=== PATIENT | male | born 1935 | race Caucasian/White ===

== ENCOUNTER → 2016-02-12 | Outpatient (REF) | payer MEDICARE ==
[~2016-02-12] MED LIST: /GLYB5TA; /PANT40TA; ACET65TA; ALDA25TA2 PO; AMLO5TAB2 PO; ASPI81TA83; ATEN100T; ATEN100T PO; BENA40TA2; BENA40TA2 PO; CIPR500T89 PO; CLON-412 PO; CLON1TAB; CLON1TAB PO; FERR325T; FLON1SPR; GLIP10TA6 PO; GLUCOVANCE; HYDR25TA6; IMOD2TAB16 PO; JANU100T PO; LACT20EL FT; LACT20EL PO; LASI20TA PO; LASI40TA PO; META28.35 PO; MILKSUS; MIRT45TA PO; PANT40TA2 PO; POTA1TAB14 PO; SENN1TAB2 PO; SPIR25TA2 PO; SPIR50TA2 PO; TYLE325T5 PO; VIAG100T PO; VITA10002 PO; XIFA550T PO; imodium; metamucil
[2016-02-12 12:55] LABS: MEAN CORPUSCULAR HEMOGLOBIN 27.7 pg (27.0-33.0); MEAN CORPUSCULAR HGB CONC 31.6 g/dl (32.0-36.5); MEAN CORPUSCULAR VOLUME 87.7 fl (80.0-96.0); RED CELL DISTRIBUTION WIDTH 15.7 % (11.5-14.5); WHITE BLOOD COUNT 2.6 K/mm3 (4.0-10.0)
[2016-02-12 13:20] LABS: ALBUMIN 2.5 GM/DL (3.2-5.2); ALBUMIN/GLOBULIN RATIO 0.53 (1.00-1.93); BILIRUBIN,TOTAL 0.6 MG/DL (0.2-1.0); CALCIUM LEVEL 8.9 MG/DL (8.8-10.2); CREATININE FOR GFR 1.33 MG/DL (0.70-1.30); GLOMERULAR FILTRATION RATE 55.2 (>42); POTASSIUM SERUM 4.5 MEQ/L (3.5-5.1); TOTAL PROTEIN 7.2 GM/DL (6.4-8.2)
== END ==
LOC: M SFHCPLAZ 08:17
PROVIDERS: ATTEND Internal Medicine
DX: K72.90 Hepatic failure, unspecified without coma (principal); D69.6 Thrombocytopenia, unspecified; E11.9 Type 2 diabetes mellitus without complications
CPT/HCPCS: 36415; 80053; 82140; 83036; 85027; G0463

== ENCOUNTER → 2016-03-11 | Outpatient (REF) | payer MEDICARE ==
[2016-03-11 11:16] LABS: INR 1.15
[2016-03-11 11:20] LABS: ALBUMIN 2.6 GM/DL (3.2-5.2); ALBUMIN/GLOBULIN RATIO 0.51 (1.00-1.93); BILIRUBIN,TOTAL 0.8 MG/DL (0.2-1.0); CALCIUM LEVEL 9.1 MG/DL (8.8-10.2); CREATININE FOR GFR 1.49 MG/DL (0.70-1.30); GLOMERULAR FILTRATION RATE 48.4 (>42); POTASSIUM SERUM 4.4 MEQ/L (3.5-5.1); TOTAL PROTEIN 7.7 GM/DL (6.4-8.2)
[2016-03-11 11:28] LABS: MEAN CORPUSCULAR HEMOGLOBIN 27.3 pg (27.0-33.0); MEAN CORPUSCULAR HGB CONC 31.2 g/dl (32.0-36.5); MEAN CORPUSCULAR VOLUME 87.4 fl (80.0-96.0); RED CELL DISTRIBUTION WIDTH 16.1 % (11.5-14.5); WHITE BLOOD COUNT 2.8 K/mm3 (4.0-10.0)
== END ==
LOC: M SFHCPLAZ 08:31
PROVIDERS: ATTEND Internal Medicine
DX: K72.90 Hepatic failure, unspecified without coma (principal); D69.6 Thrombocytopenia, unspecified; I10 Essential (primary) hypertension; K76.6 Portal hypertension
CPT/HCPCS: 36415; 80053; 82140; 85027; 85610; G0463

== ENCOUNTER → 2016-04-13 | Outpatient (REF) | payer MEDICARE ==
[2016-04-13 12:14] LABS: INR 1.11
[2016-04-13 12:17] LABS: MEAN CORPUSCULAR HEMOGLOBIN 28.8 pg (27.0-33.0); MEAN CORPUSCULAR VOLUME 87.2 fl (80.0-96.0); RED CELL DISTRIBUTION WIDTH 16.4 % (11.5-14.5); WHITE BLOOD COUNT 2.8 K/mm3 (4.0-10.0)
[2016-04-13 14:17] LABS: CREATININE FOR GFR 1.37 MG/DL (0.70-1.30); GLOMERULAR FILTRATION RATE 53.4 (>42); POTASSIUM SERUM 4.7 MEQ/L (3.5-5.1)
[2016-04-13 14:18] LABS: ALBUMIN 2.5 GM/DL (3.2-5.2); ALBUMIN/GLOBULIN RATIO 0.51 (1.00-1.93); BILIRUBIN,TOTAL 0.6 MG/DL (0.2-1.0); CALCIUM LEVEL 8.8 MG/DL (8.8-10.2); TOTAL PROTEIN 7.4 GM/DL (6.4-8.2)
== END ==
LOC: M SFHCPLAZ 08:44
PROVIDERS: ATTEND Internal Medicine
DX: K72.90 Hepatic failure, unspecified without coma (principal); D69.6 Thrombocytopenia, unspecified; E11.9 Type 2 diabetes mellitus without complications; K76.6 Portal hypertension

== ENCOUNTER → 2016-07-10 | Outpatient (REF) | payer MEDICARE ==
[2016-07-10 11:20] LABS: ALBUMIN 2.4 GM/DL (3.2-5.2); ALBUMIN/GLOBULIN RATIO 0.49 (1.00-1.93); ALKALINE PHOSPHATASE 80 U/L (45-117); ALT/SGPT 34 U/L (12-78); ANION GAP 9 MEQ/L (8-16); AST/SGOT 37 U/L (15-37); BILIRUBIN,TOTAL 0.8 MG/DL (0.2-1.0); BLOOD UREA NITROGEN 28 MG/DL (7-18); CALCIUM LEVEL 8.4 MG/DL (8.8-10.2); CARBON DIOXIDE LEVEL 23 MEQ/L (21-32); CHLORIDE LEVEL 107 MEQ/L (98-107); CREATININE FOR GFR 1.14 MG/DL (0.70-1.30); GLOMERULAR FILTRATION RATE > 60.0 (>42); GLUCOSE, FASTING 260 MG/DL (83-110); POTASSIUM SERUM 4.4 MEQ/L (3.5-5.1); SODIUM LEVEL 139 MEQ/L (136-145); TOTAL PROTEIN 7.3 GM/DL (6.4-8.2)
== END ==
LOC: M SFHCPLAZ 08:42
PROVIDERS: ATTEND Internal Medicine
DX: K72.90 Hepatic failure, unspecified without coma (principal); D69.6 Thrombocytopenia, unspecified; E11.9 Type 2 diabetes mellitus without complications

== ENCOUNTER 2016-07-21 09:53 | Emergency (ER) | payer MEDICARE, OTHER ==
[~2016-07-21] VITALS: Ht 190.5 cm; Wt 74.4 kg
[2016-07-21 11:11] LABS: DIFF SLIDE NUMBER 243; MEAN CORPUSCULAR HEMOGLOBIN 29.6 pg (27.0-33.0); MEAN CORPUSCULAR HGB CONC 32.7 g/dl (32.0-36.5); MEAN CORPUSCULAR VOLUME 90.5 fl (80.0-96.0); RED CELL DISTRIBUTION WIDTH 14.7 % (11.5-14.5); WHITE BLOOD COUNT 2.4 K/mm3 (4.0-10.0)
[2016-07-21 11:19] LABS: INR 1.22
[2016-07-21 11:31] LABS: ALBUMIN 2.1 GM/DL (3.2-5.2); ALBUMIN/GLOBULIN RATIO 0.5 (1.00-1.93); BILIRUBIN,DIRECT 0.2 MG/DL (0.0-0.2); BILIRUBIN,TOTAL 0.6 MG/DL (0.2-1.0); CALCIUM LEVEL 8.4 MG/DL (8.8-10.2); CREATININE FOR GFR 1.31 MG/DL (0.70-1.30); GLOMERULAR FILTRATION RATE 56.2 (>42); POTASSIUM SERUM 4.2 MEQ/L (3.5-5.1); TOTAL PROTEIN 6.3 GM/DL (6.4-8.2)
[2016-07-21 11:37] LABS: BASO % 0.8 % (0.0-1.0); EOS % 7.1 % (0.0-3.0); LARGE UNSTAINED CELL % 3.5 % (0.0-4.0); LYMPH # 0.5 K/mm3 (1.5-4.5); LYMPH % 19.5 % (24.0-44.0); MONO # 0.1 K/mm3 (0.0-0.8); MONO % 4.9 % (0.0-5.0); NEUTROPHILS # 1.5 K/mm3 (1.8-7.7); NEUTROPHILS % 64.1 % (36.0-66.0); PLATELET COUNT, AUTOMATED 57 k/mm3 (150-450)
[2016-07-21 11:38] LABS: EOS # 0.2 K/mm3 (0.0-0.50); LARGE UNSTAINED CELL # 0.1 K/mm3 (0.0-0.4)
[2016-07-21 12:06] VITALS: BP 110/62
== END 2016-07-21 12:41 | disposition home or self-care (01) ==
LOC: M ED 11:20
DX: E11.9 Type 2 diabetes mellitus without complications (principal); E72.20 Disorder of urea cycle metabolism, unspecified; K74.60 Unspecified cirrhosis of liver; W06.XXXA Fall from bed, initial encounter; Z79.899 Other long term (current) drug therapy; Z91.013 Allergy to seafood

== ENCOUNTER 2016-09-07 08:23 | Inpatient (IN) | payer MEDICARE ==
[~2016-09-07] VITALS: Ht 190.5 cm; Wt 79.0 kg
[~2016-09-07 08:23] MED LIST changes: -BENA40TA2 PO; +BENA40TA7 PO; +CIPR-249 PO; -CIPR500T89 PO
[2016-09-07] MEDS ORDERED: FURO40TA2 PO (08:52)
[2016-09-07] MEDS ORDERED: TOUJ1.2I SC (08:52)
[2016-09-07] MEDS ORDERED: SPIR25TA2 PO (08:52)
[2016-09-07] MEDS: SENOKOT S TAB PO SCH ×3 (09:00→21:14)
[2016-09-07] MEDS ORDERED: NS 1,000 ML IV SCH (09:20)
[2016-09-07 09:48] LABS: BASO % 1.5 % (0.0-1.0); EOS # 0.2 K/mm3 (0.0-0.50); EOS % 6.3 % (0.0-3.0); LARGE UNSTAINED CELL # 0.1 K/mm3 (0.0-0.4); LYMPH # 0.4 K/mm3 (1.5-4.5); LYMPH % 15.8 % (24.0-44.0); MEAN CORPUSCULAR HEMOGLOBIN 28.4 pg (27.0-33.0); MEAN CORPUSCULAR HGB CONC 32.8 g/dl (32.0-36.5); MEAN CORPUSCULAR VOLUME 86.7 fl (80.0-96.0); MONO # 0.1 K/mm3 (0.0-0.8); MONO % 5.6 % (0.0-5.0); NEUTROPHILS # 1.6 K/mm3 (1.8-7.7); NEUTROPHILS % 66.8 % (36.0-66.0); RED CELL DISTRIBUTION WIDTH 15.4 % (11.5-14.5); WHITE BLOOD COUNT 2.4 K/mm3 (4.0-10.0)
[2016-09-07 09:50] LABS: PLATELET COUNT, AUTOMATED 71 k/mm3 (150-450)
[2016-09-07 09:54] LABS: INR 1.24
[2016-09-07 10:07] LABS: ALBUMIN 2.5 GM/DL (3.2-5.2); ALBUMIN/GLOBULIN RATIO 0.51 (1.00-1.93); ALKALINE PHOSPHATASE 82 U/L (45-117); ALT/SGPT 23 U/L (12-78); AMYLASE 56 U/L (25-115); ANION GAP 13 MEQ/L (8-16); AST/SGOT 18 U/L (15-37); BILIRUBIN,DIRECT 0.3 MG/DL (0.0-0.2); BILIRUBIN,TOTAL 0.8 MG/DL (0.2-1.0); BLOOD UREA NITROGEN 24 MG/DL (7-18); CALCIUM LEVEL 8.7 MG/DL (8.8-10.2); CARBON DIOXIDE LEVEL 22 MEQ/L (21-32); CHLORIDE LEVEL 107 MEQ/L (98-107); CREATININE FOR GFR 1.51 MG/DL (0.70-1.30); GLOMERULAR FILTRATION RATE 47.7 (>42); GLUCOSE, FASTING 350 MG/DL (83-110); SODIUM LEVEL 142 MEQ/L (136-145); TOTAL PROTEIN 7.4 GM/DL (6.4-8.2)
--- NOTE | 2016-09-07 10:23 | REP ---
CHEST PA AND LATERAL: 09/07/2016 COMPARISON: 05/26/2016, 01/21/2016, 11/07/2015. CLINICAL HISTORY: Abdominal pain. FINDINGS: There is a right pleural effusion with some volume loss in the right hemithorax and mass-like opacity in the right lower lobe posteromedially. This is similar in appearance to the previous study. The size of the effusion may be slightly smaller than on the 05/24/2016 study. Mass, unchanged. Atelectatic changes in the right middle lobe likely due to effusion with compressive atelectasis. The left lung hyperinflated and clear. Heart not enlarged. The aorta is mildly tortuous. Airway intact. Bony thorax shows no focal lesion or compression deformity. IMPRESSION: 1. Right lower lobe mass-like opacity unchanged from the May 2016 study, approximately 5 cm maximum diameter with compressive atelectasis and effusion in the right lower lobe, the same or slightly smaller. Left lung remains clear. Signed by Jp Payton MD 09/07/2016 09:17 P
--- NOTE | 2016-09-07 11:03 | REP ---
CT Head without contrast HISTORY: Altered mental status COMPARISON: 01/21/2016 Areas of decreased attenuation are present in the periventricular white matter. This represents small-vessel ischemic disease. There is no intraparenchymal hemorrhage, acute infarct, mass or midline shift. The ventricular system and cortical sulci are dilated consistent with mild volume loss. There is no extra cerebral collection. There is no fracture. The visualized sinuses are clear. IMPRESSION: 1. Small vessel ischemic disease. 2. Mild volume loss. Signed by Tucker Jaime MD 09/07/2016 10:55 A
[2016-09-07] MEDS ORDERED: XIFA550T PO (11:11)
[2016-09-07] MEDS ORDERED: LACT10SO3 PO (11:11)
[2016-09-07] MEDS ORDERED: GLUCOSE 4 GM CHEW TABLET PO PRN (11:30)
[2016-09-07] MEDS ORDERED: clonazePAM 1 MG TAB PO PRN (11:30)
[2016-09-07] MEDS ORDERED: GLUCAGON FOR INJ 1 MG VIAL (J1610) SC PRN (11:30)
[2016-09-07] MEDS ORDERED: DEXTROSE 50% 50 ML SYRINGE IV PRN (11:30)
[2016-09-07 12:45] VITALS: BP 164/80
--- NOTE | 2016-09-07 13:11 | REP ---
BILATERAL LOWER EXTREMITY DOPPLER VENOUS ULTRASOUND: 09/07/2016 COMPARISON: None. CLINICAL HISTORY: Lower extremity swelling, left greater than right. TECHNIQUE: The deep venous system of the bilateral lower extremities is evaluated with peterson scale imaging, compression ultrasound, color imaging and duplex Doppler interrogation. Examination from the groin through the popliteal fossa into the proximal calf. FINDINGS: There is full compressibility from the common femoral vein in the inguinal region through the popliteal vein on both sides. Color imaging confirms patency throughout the course of the deep venous system. There is respiratory variation and augmented flow at all levels. Incidentally noted is duplication partially involving the distal course in the femoral vein in the lower thigh. This is an anatomic variant. IMPRESSION: 1. No Doppler venous ultrasound evidence of DVT in the bilateral lower extremities. Signed by Jp Payton MD 09/07/2016 09:20 P
[2016-09-07] MEDS: FUROSEMIDE 40 MG/4 ML VIAL (J1940) IV SCH ×2 (13:32→18:13)
[2016-09-07] MEDS: LACTULOSE 20 GM/30 ML SYRUP UD PO SCH (13:33)
[2016-09-07] MEDS: POTASSIUM CHLORIDE 10 MEQ SR TABLET PO SCH (13:33)
[2016-09-07] MEDS: HumaLOG INSULIN (NovoLOG) PER UNIT SC SCH ×3 (13:34→21:43)
[2016-09-07 14:00] VITALS: BP 161/75
[2016-09-07 18:00] VITALS: BP 114/56
--- NOTE | 2016-09-07 18:29 | ECGEPIP ---
Stationary ECG Study [facility] - ED Test Date: 2016-09-07 Pat Name: NAYELI VIRAMONTES Department: Room: - Gender: M [employer]: rn : 1935 Requested By: Federico Watts Order Number: [id number] Reading MD: Andrei Sneed Measurements Intervals [place] Rate: 70 P: -21 OR: 169 QRS: -74 QRSD: 163 T: 12 QT: 462 QTc: 500 Interpretive Statements SINUS RHYTHM RIGHT BUNDLE BRANCH BLOCK LEFT ANTERIOR FASCICULAR BLOCK POSSIBLE SEPTAL MYOCARDIAL INFARCTION, OF INDETERMINATE AGE SIMILAR TO 01/21/16 Electronically Signed On 09-07-2016 18:28:56 EDT by Andrei Sneed
[2016-09-07] MEDS ORDERED: ACETAMINOPHEN TAB 650MG DOSE (2X325MG) PO PRN (19:00)
--- NOTE | 2016-09-07 19:04 | HPE ---
DATE OF ADMISSION: 09/07/2016 PRIMARY CARE PROVIDER: Jesus Bucio MD CHIEF COMPLAINT: Increasing weakness over several weeks, increasing swelling of the legs, worse over the past 2 weeks, recurrent falls. PAST MEDICAL HISTORY: 1. Decompensated cirrhosis of liver, etiology unknown. 2. Status post transjugular intrahepatic portosystemic shunt (TIPS) in 2016. 3. History of hepatic encephalopathy. 4. Pancytopenia. 5. Diabetes. 6. Chronic kidney disease (CKD) stage III. 7. History of prostate cancer status post radiation. 8. Coronary artery disease. 9. Congestive heart failure. 10. Gastroesophageal reflux disease. 11. Irritable bowel syndrome. 12. Vitamin B12 deficiency. 13. Hypertension. 14. Agoraphobia. 15. Esophageal varices status post banding in 2016. 16. Hypersplenism. 17. Anxiety and depression. 18. History of recurrent right pleural effusion, now with trapped right lung. HISTORY OF PRESENT ILLNESS: This is a 80-year-old male who was brought in from home by because he has been getting weaker and weaker over the past several weeks with increasing leg swelling over the past 2 weeks and recurrent falls at home and, as per her, she is unable to take care of him at home anymore. Patient has multiple medical comorbidities as mentioned above with decompensated liver cirrhosis with ascites, edema, pancytopenia, portal hypertension with history of esophageal varices banding and TIPS procedure in the past, also history of hepatic encephalopathy. The etiology of the cirrhosis is unknown. In the emergency department (ED) he was found to be extremely weak requiring support to be mobilized and unable to walk by himself. Laboratory studies showed pancytopenia which was at baseline, high sugars of 350, creatinine of 1.5. His lactate was normal. His ammonia level was 113, which was a little higher from baseline, however patient was alert, oriented, and did not have any encephalopathic features. Patient did have massive bilateral leg swelling with some oozing. Patient is being admitted to the hospitalist service for decompensated liver cirrhosis with fluid overload and inability to ambulate. PAST SURGICAL HISTORY: 1. TIPS procedure done in 2016. 2. Prostate biopsy. 3. Tonsillectomy. 4. Colonoscopy. 5. Rectal fissure repair. 6. Umbilical hernia repair. 7. Several thoracocenteses. SOCIAL HISTORY: Patient is not a smoker. He is a retired draftsman. He is since but does live with his ex-. ALLERGIES: To shrimp. HOME MEDICATIONS: - atenolol 100 mg by mouth daily - benazepril 40 mg by mouth daily - clonazepam 1 mg by mouth twice a day as needed for anxiety - cyanocobalamin 1000 mcg by mouth daily - Flonase nasal spray - Lasix 40 mg by mouth daily - glipizide 20 mg by mouth daily - lactulose 30 mL by mouth daily - mirtazapine 45 mg at bedtime - pantoprazole 40 mg by mouth daily - potassium chloride 20 mEq by mouth daily - rifaximin 550 mg by mouth twice a day - Januvia 100 mg by mouth daily - spironolactone 25 mg by mouth daily - Toujeo insulin 23 units subcutaneously daily FAMILY HISTORY: Notable for colon cancer in sister. Father at the age of 77 of a cerebral vascular accident and diabetes. Mother from diabetic complications at age 77. Brother of myocardial infarction in his 60s. REVIEW OF SYSTEMS: Patient denies any fever or chills. Denies any confusion. Denies any constipation or diarrhea. Denies any nausea or vomiting. Denies any abdominal pain. Denies any chest pain. Does complain of having some phlegm and some cough. Denies any shortness of breath. Complains of severe increasing leg swelling with some weeping. PHYSICAL EXAMINATION: VITAL SIGNS: Temperature 97.8, pulse 66, respiratory rate 18, blood pressure 136/65, pulse oximetry 99% in room air. GENERAL: Patient awake, alert, oriented times three, lying down in bed, in no acute distress. HEENT: Normocephalic, atraumatic. Moist mucous membranes. Anicteric eyes. CHEST: Clear to auscultation. There is some crackles at the bases. CARDIOVASCULAR: S1, S2, regular. ABDOMEN: Soft, nontender. Bowel sounds present. Ascites present. EXTREMITIES: Bipedal 4+ edema with redness and some leaking of fluids. LABORATORY DATA: WBC 2.4, hemoglobin 10.7, platelets 71. Sodium 142, potassium 4, chloride 107, bicarbonate 22, BUN 24, creatinine 1.51, glucose 350, lactate 1.7, calcium 8.7. Liver function tests are normal. Ammonia 113, albumin 2.1. Amylase and lipase are normal. ASSESSMENT: This is a 80-year-old male admitted for decompensated liver cirrhosis with fluid overload. PLAN: 1. For decompensated liver cirrhosis, patient's etiology of cirrhosis is unknown. Will start the patient on Lasix IV twice a day. Will continue with atenolol and spironolactone. 2. Portal hypertension with history of transjugular intrahepatic portosystemic shunt (TIPS) procedure in the past and esophageal varices with banding in the past. Will continue with atenolol and continue treatment for fluid overload and cirrhosis. 3. Pancytopenia. This is due to cirrhosis. Will continue to monitor. Will not give any heparin. 4. History of hepatic encephalopathy. At this the point the ammonia is elevated but the patient does not have any encephalopathic signs at this point, but will continue the patient on rifaximin and lactulose. 5. Hypertension. Will continue the patient on atenolol. Will decrease the dose of benazepril from 40 to 20 mg a day. If renal function worsens, will discontinue benazepril. 6. Chronic kidney disease (CKD) stage III. Creatinine is almost at baseline. Will continue to monitor. 7. Anxiety, depression, and agoraphobia. Will continue with mirtazapine at bedtime as well as clonazepam as needed. 8. Diabetes. Will continue with Levemir insulin. Will also continue with glipizide. Will hold Januvia at present. Will give short-acting insulin as required. 9. Deep venous thrombosis (DVT) prophylaxis has been ordered. 10. Gastrointestinal (GI) prophylaxis has been ordered. 11. Gait instability and generalized muscular deconditioning and weakness. Will ask physical therapy and occupational therapy to evaluate the patient. 12. Will also consult patient and family services (PFS) as unsure about the social situation and may need placement. PAMELAD
[2016-09-07] MEDS: rifAXIMin 550 MG TAB (XIFAXAN) PO SCH (21:14)
[2016-09-07] MEDS: MIRTAZAPINE 15 MG TAB PO SCH (21:14)
[2016-09-07 22:00] VITALS: BP 105/52
[2016-09-08 06:00] VITALS: BP 118/55
[2016-09-08 07:07] LABS: EOS # 0.1 K/mm3 (0.0-0.50); EOS % 4.8 % (0.0-3.0); LYMPH # 0.4 K/mm3 (1.5-4.5); LYMPH % 25.2 % (24.0-44.0); MEAN CORPUSCULAR HEMOGLOBIN 28.1 pg (27.0-33.0); MEAN CORPUSCULAR HGB CONC 32.2 g/dl (32.0-36.5); MEAN CORPUSCULAR VOLUME 87.3 fl (80.0-96.0); MONO # 0.1 K/mm3 (0.0-0.8); MONO % 6.8 % (0.0-5.0); NEUTROPHILS # 0.8 K/mm3 (1.8-7.7); NEUTROPHILS % 59.3 % (36.0-66.0); RED CELL DISTRIBUTION WIDTH 15.7 % (11.5-14.5); WHITE BLOOD COUNT 1.3 K/mm3 (4.0-10.0)
[2016-09-08 07:08] LABS: PLATELET COUNT, AUTOMATED 64 k/mm3 (150-450)
[2016-09-08 07:19] LABS: CREATININE FOR GFR 1.28 MG/DL (0.70-1.30); GLOMERULAR FILTRATION RATE 57.7 (>42)
[2016-09-08] MEDS: LEVEMIR (INSULIN DETEMIR) 1 UNITS/0.01ML SC SCH (08:39)
[2016-09-08] MEDS: FUROSEMIDE 40 MG/4 ML VIAL (J1940) IV SCH ×2 (08:39→16:46)
[2016-09-08] MEDS: LACTULOSE 20 GM/30 ML SYRUP UD PO SCH (08:39)
[2016-09-08] MEDS: HumaLOG INSULIN (NovoLOG) PER UNIT SC SCH ×4 (08:40→22:18)
[2016-09-08] MEDS: glipiZIDE 10 MG TAB PO SCH ×2 (08:49→17:53)
[2016-09-08] MEDS: CYANOCOBALAMIN 500 MCG TAB PO SCH (08:49)
[2016-09-08] MEDS: SPIRONOLACTONE 25 MG TAB PO SCH (08:51)
[2016-09-08] MEDS: POTASSIUM CHLORIDE 10 MEQ SR TABLET PO SCH (08:51)
[2016-09-08] MEDS: PANTOPRAZOLE 40MG TAB (PROTONIX) PO SCH (08:51)
[2016-09-08] MEDS: SENOKOT S TAB PO SCH ×2 (08:51→22:09)
[2016-09-08] MEDS: BENAZEPRIL 20 MG TAB PO SCH (08:51)
[2016-09-08] MEDS: rifAXIMin 550 MG TAB (XIFAXAN) PO SCH ×2 (08:51→22:09)
[2016-09-08] MEDS: ATENOLOL 50 MG TAB PO SCH (08:52)
[2016-09-08 14:00] VITALS: BP_SYST 130; BP_SYST 132; BP_DIAS 64; BP_DIAS 76
--- NOTE | 2016-09-08 18:39 | IPNPDOC ---
Date Seen The patient was seen on 09/08/16. Progress Note Hospitalist Progress Note Subjective: Patient has no specific complaints but he does state that he would like to go home, and would like hospice called Objective: Physical Exam: Vitals: Vital Sign - Last 24 Hours 09/07/16 09/07/16 09/08/16 09/08/16 21:30 22:00 02:06 06:00 Temp 98.2 98.6 Pulse 75 74 Resp 16 16 B/P (MAP) 105/52 (69) 118/55 (76) Pulse Ox 97 95 O2 Delivery Room Air Room Air Room Air Room Air 09/08/16 09/08/16 08:51 14:00 Temp 98.2 Pulse 88 Resp 16 B/P (MAP) 104/40 132/64 (86) Pulse Ox 97 O2 Delivery Room Air General: Awake, alert, no acute distress HEENT: Normocephalic, moist mucous membranes CV: Regular Rate and rhythm Lungs: Clear to auscultation bilaterally Abd: Soft, nontender Extremities: 2+ pitting edema Neuro: Alert and oriented to person and place but thinks that it is 1975, normal speech Psych: normal mood and affect Labs and Imaging: Laboratory Tests 09/08/16 06:47 Red Blood Count 3.81 L, Mean Corpuscular Volume 87.3, Mean Corpuscular Hemoglobin 28.1, Mean Corpuscular Hemoglobin Concent 32.2, Red Cell Distribution Width 15.7 H, Neutrophils (%) (Auto) 59.3, Lymphocytes (%) (Auto) 25.2, Monocytes (%) (Auto) 6.8 H, Eosinophils (%) (Auto) 4.8 H, Basophils (%) ( Auto) 1.0, Neutrophils # (Auto) 0.8 L, Lymphocytes # (Auto) 0.4 L, Monocytes # ( Auto) 0.1, Eosinophils # (Auto) 0.1, Basophils # (Auto) 0.0, Calcium Level 9.0 Assessment and Plan: 80-year-old male with decompensated cirrhosis of the liver status post TIPS, history of hepatic encephalopathy, pancytopenia, diabetes mellitus type 2, chronic kidney disease stage III, history of prostate cancer status post radiation, coronary artery disease, chronic CHF, GERD, IBS, hypertension, anxiety and depression, agoraphobia, history of esophageal varices status post banding, hypersplenism, history of recurrent right pleural effusion now with trapped right lung who was initially brought to the emergency department by his ex- who is his caregiver and healthcare proxy because he had had several weeks of increasing weakness and bilateral lower extremity swelling. Today, the patient and his healthcare proxy are both asking for hospice, as he wants to be at home, and they realize that he is nearing the end of his life. We will call hospice today for him. He was started on Lasix, which we will continue while he is here for some symptomatic relief. He was otherwise continued on his home medications. Despite an elevated ammonia, he does not exhibit any symptoms of hepatic encephalopathy at this time. His pancytopenia and chronic kidney disease appeared to be at baseline. SCDs for DVT prophylaxis given his thrombocytopenia. VS, I&O, 24H, Fishbone Vital Signs/I&O Vital Signs Date Time Temp Pulse Resp B/P (MAP) Pulse Ox O2 Delivery O2 Flow Rate FiO2 09/08/16 14:00 98.2 88 16 132/64 (86) 97 Room Air I&O- Last 24 Hours up to 6 AM 09/08/16 06:00 Intake Total 1440 ml Output Total 550 ml Balance 890 ml Laboratory Data 24H LABS Laboratory Tests 2 09/07/16 21:09: Bedside Glucose (Misc Panel) 295H 09/08/16 06:47: White Blood Count 1.3L, Red Blood Count 3.81L, Hemoglobin 10.7L, Hematocrit 33.2L, Mean Corpuscular Volume 87.3, Mean Corpuscular Hemoglobin 28.1, Mean Corpuscular Hemoglobin Concent 32.2, Red Cell Distribution Width 15.7H, Platelet Count 64L, Neutrophils (%) (Auto) 59.3, Lymphocytes (%) (Auto) 25.2, Monocytes (%) (Auto) 6.8H, Eosinophils (%) (Auto) 4.8H, Basophils (%) (Auto) 1.0 , Neutrophils # (Auto) 0.8L, Lymphocytes # (Auto) 0.4L, Monocytes # (Auto) 0.1, Eosinophils # (Auto) 0.1, Basophils # (Auto) 0.0, Large Unclassified Cells % 3.0 , Large Unclassified Cells # 0.0, Anion Gap 8, Glomerular Filtration Rate 57.7, Blood Urea Nitrogen 28H, Creatinine 1.28, Sodium Level 142, Potassium Level 4.0 , Chloride Level 109H, Carbon Dioxide Level 25, Calcium Level 9.0 09/08/16 11:53: Bedside Glucose (Misc Panel) 311H CBC/BMP Laboratory Tests 09/08/16 06:47 Red Blood Count 3.81 L, Mean Corpuscular Volume 87.3, Mean Corpuscular Hemoglobin 28.1, Mean Corpuscular Hemoglobin Concent 32.2, Red Cell Distribution Width 15.7 H, Neutrophils (%) (Auto) 59.3, Lymphocytes (%) (Auto) 25.2, Monocytes (%) (Auto) 6.8 H, Eosinophils (%) (Auto) 4.8 H, Basophils (%) ( Auto) 1.0, Neutrophils # (Auto) 0.8 L, Lymphocytes # (Auto) 0.4 L, Monocytes # ( Auto) 0.1, Eosinophils # (Auto) 0.1, Basophils # (Auto) 0.0, Calcium Level 9.0 Microbiology Microbiology 09/07/16 Blood Culture - Preliminary, Resulted No growth after 24 hours . All specim... 09/07/16 Blood Culture - Preliminary, Resulted No growth after 24 hours . All specim... 09/07/16 Urine Culture - Final, Complete RENATA MONTOYA Sep 08, 2016 18:39
[2016-09-08 22:00] VITALS: BP 132/63
[2016-09-08] MEDS: MIRTAZAPINE 15 MG TAB PO SCH (22:09)
[2016-09-09 06:00] VITALS: BP 141/73
[2016-09-09 06:23] LABS: BASO % 0.6 % (0.0-1.0); EOS # 0.1 K/mm3 (0.0-0.50); EOS % 5.3 % (0.0-3.0); LARGE UNSTAINED CELL # 0.1 K/mm3 (0.0-0.4); LARGE UNSTAINED CELL % 3.9 % (0.0-4.0); LYMPH # 0.4 K/mm3 (1.5-4.5); LYMPH % 26.8 % (24.0-44.0); MEAN CORPUSCULAR HEMOGLOBIN 28.4 pg (27.0-33.0); MEAN CORPUSCULAR HGB CONC 32.6 g/dl (32.0-36.5); MEAN CORPUSCULAR VOLUME 87.2 fl (80.0-96.0); MONO # 0.1 K/mm3 (0.0-0.8); MONO % 6.8 % (0.0-5.0); NEUTROPHILS # 0.7 K/mm3 (1.8-7.7); NEUTROPHILS % 56.6 % (36.0-66.0); RED CELL DISTRIBUTION WIDTH 15.7 % (11.5-14.5); WHITE BLOOD COUNT 1.2 K/mm3 (4.0-10.0)
[2016-09-09 06:24] LABS: PLATELET COUNT, AUTOMATED 50 k/mm3 (150-450)
[2016-09-09 06:26] LABS: ANION GAP 8 MEQ/L (8-16); BLOOD UREA NITROGEN 29 MG/DL (7-18); CALCIUM LEVEL 8.4 MG/DL (8.8-10.2); CARBON DIOXIDE LEVEL 25 MEQ/L (21-32); CHLORIDE LEVEL 115 MEQ/L (98-107); CREATININE FOR GFR 1.13 MG/DL (0.70-1.30); GLOMERULAR FILTRATION RATE > 60.0 (>42); GLUCOSE, FASTING 141 MG/DL (83-110); POTASSIUM SERUM 3.6 MEQ/L (3.5-5.1); SODIUM LEVEL 148 MEQ/L (136-145)
[2016-09-09 08:59] VITALS: BP 142/74
[2016-09-09] MEDS: LACTULOSE 20 GM/30 ML SYRUP UD PO SCH (08:59)
[2016-09-09] MEDS: ATENOLOL 50 MG TAB PO SCH (08:59)
[2016-09-09] MEDS: POTASSIUM CHLORIDE 10 MEQ SR TABLET PO SCH (09:00)
[2016-09-09] MEDS: SPIRONOLACTONE 25 MG TAB PO SCH (09:00)
[2016-09-09] MEDS: PANTOPRAZOLE 40MG TAB (PROTONIX) PO SCH (09:00)
[2016-09-09] MEDS: LEVEMIR (INSULIN DETEMIR) 1 UNITS/0.01ML SC SCH (09:00)
[2016-09-09] MEDS: CYANOCOBALAMIN 500 MCG TAB PO SCH (09:00)
[2016-09-09] MEDS: rifAXIMin 550 MG TAB (XIFAXAN) PO SCH (09:00)
[2016-09-09] MEDS: BENAZEPRIL 20 MG TAB PO SCH (09:01)
[2016-09-09] MEDS: glipiZIDE 10 MG TAB PO SCH (09:01)
[2016-09-09] MEDS: SENOKOT S TAB PO SCH (09:01)
[2016-09-09] MEDS: HumaLOG INSULIN (NovoLOG) PER UNIT SC SCH (09:02)
[2016-09-09] MEDS: FUROSEMIDE 40 MG/4 ML VIAL (J1940) IV SCH (09:04)
[2016-09-09] MEDS ORDERED: FURO40TA2 PO (10:28)
[2016-09-09] MEDS ORDERED: MORP1SOL PO (10:28)
[2016-09-09] MEDS ORDERED: ATIV1TAB10 PO (10:28)
[2016-09-09] MEDS ORDERED: HYOS1TAB PO (10:28)
[2016-09-09] MEDS ORDERED: BENA20TA PO (10:28)
--- NOTE | 2016-09-09 10:42 | DS.PDOC ---
Discharge Summary General Date of Admission Sep 07, 2016 at 11:28 Date of Discharge 09/09/2016 Discharge Summary DISCHARGE SUMMARY DATE OF ADMISSION: 09/07/2016 DATE OF DISCHARGE: 09/09/2016 PRIMARY CARE PHYSICIAN: Dr. Jesus Bucio DISCHARGE DIAGNOS(E)S: Decompensated liver cirrhosis, end-stage Acute on chronic unspecified CHF Increasing debility Urinary retention HPI & HOSPITAL COURSE: 80-year-old male with decompensated cirrhosis of the liver status post TIPS, history of hepatic encephalopathy, pancytopenia, diabetes mellitus type 2, chronic kidney disease stage III, history of prostate cancer status post radiation, coronary artery disease, chronic CHF, GERD, IBS, hypertension, anxiety and depression, agoraphobia, history of esophageal varices status post banding, hypersplenism, history of recurrent right pleural effusion now with trapped right lung who was initially brought to the emergency department by his ex- who is his caregiver and healthcare proxy because he had had several weeks of increasing weakness and bilateral lower extremity swelling, likely secondary to his decompensated liver disease and some acute on chronic CHF. The patient and his healthcare proxy are both asking for hospice, as he wants to be at home, and they realize that he is nearing the end of his life. Hospice has accepted him and he is going home with hospice today. He was started on IV Lasix , which we continued while inpatient for some symptomatic relief, and at discharge, I have doubled his oral home lasix. Accordingly, I cut his ACEI in half. He was otherwise continued on his home medications. Additionally, a Plata catheter was placed as the patient was having difficulty urinating, and it drained over 1200 mL. When he goes home with hospice, we will discharge him with the Plata catheter in place for urinary retention. Despite an elevated ammonia, he does not exhibit any symptoms of hepatic encephalopathy at this time. His pancytopenia and chronic kidney disease appeared to be at baseline. SCDs for DVT prophylaxis while inpatient given his thrombocytopenia. PHYSICAL EXAMINATION ON DISCHARGE: VITAL SIGNS: Vital Signs Date Time Temp Pulse Resp B/P (MAP) Pulse Ox O2 Delivery O2 Flow Rate FiO2 09/09/16 08:59 66 142/74 09/09/16 06:00 98.7 16 98 Room Air General: Awake, alert, no acute distress HEENT: Normocephalic, moist mucous membranes CV: Regular Rate and rhythm Lungs: Clear to auscultation bilaterally Abd: Soft, nontender Extremities: 1+ pitting edema Neuro: AAOx3, normal speech Psych: normal mood and flat affect DISPOSITION: Home with hospice DISCHARGE INSTRUCTIONS: Follow-up with the hospice physician and hospice nurse. Maintain Plata catheter. If symptoms return, or if you experience worsening of your symptoms, please call your doctor or return to the emergency department. ITEMS THAT NEED OUTPATIENT FOLLOWUP: None Patient was seen and examined by me on the day of discharge, and I spent a total time of greater than 30 minutes on this discharge. Vital Signs/I&Os Vital Signs Date Time Temp Pulse Resp B/P (MAP) Pulse Ox O2 Delivery O2 Flow Rate FiO2 09/09/16 08:59 66 142/74 09/09/16 06:00 98.7 16 98 Room Air I&O- Last 24 Hours up to 6 AM 09/09/16 06:00 Intake Total 1080 ml Output Total 2100 ml Balance -1020 ml Laboratory Data Labs 24H Laboratory Tests 2 09/08/16 11:53: Bedside Glucose (Misc Panel) 311H 09/08/16 17:05: Bedside Glucose (Misc Panel) 246H 09/08/16 19:45: Bedside Glucose (Misc Panel) 269H 09/09/16 05:50: White Blood Count 1.2L, Red Blood Count 3.14L, Hemoglobin 8.9L, Hematocrit 27.4L , Mean Corpuscular Volume 87.2, Mean Corpuscular Hemoglobin 28.4, Mean Corpuscular Hemoglobin Concent 32.6, Red Cell Distribution Width 15.7H, Platelet Count 50#L, Neutrophils (%) (Auto) 56.6, Lymphocytes (%) (Auto) 26.8, Monocytes (%) (Auto) 6.8H, Eosinophils (%) (Auto) 5.3H, Basophils (%) (Auto) 0.6 , Neutrophils # (Auto) 0.7L, Lymphocytes # (Auto) 0.4L, Monocytes # (Auto) 0.1, Eosinophils # (Auto) 0.1, Basophils # (Auto) 0.0, Large Unclassified Cells % 3.9 , Large Unclassified Cells # 0.1, Anion Gap 8, Glomerular Filtration Rate > 60.0 , Blood Urea Nitrogen 29H, Creatinine 1.13, Sodium Level 148H, Potassium Level 3.6, Chloride Level 115H, Carbon Dioxide Level 25, Calcium Level 8.4L CBC/BMP Laboratory Tests 09/09/16 05:50 Red Blood Count 3.14 L, Mean Corpuscular Volume 87.2, Mean Corpuscular Hemoglobin 28.4, Mean Corpuscular Hemoglobin Concent 32.6, Red Cell Distribution Width 15.7 H, Neutrophils (%) (Auto) 56.6, Lymphocytes (%) (Auto) 26.8, Monocytes (%) (Auto) 6.8 H, Eosinophils (%) (Auto) 5.3 H, Basophils (%) ( Auto) 0.6, Neutrophils # (Auto) 0.7 L, Lymphocytes # (Auto) 0.4 L, Monocytes # ( Auto) 0.1, Eosinophils # (Auto) 0.1, Basophils # (Auto) 0.0, Calcium Level 8.4 L FSBS Laboratory Tests Test 09/08/16 11:53 09/08/16 17:05 09/08/16 19:45 Range/Units Bedside Glucose (Misc Panel) 311 246 269 83-110 MG/DL Microbiology Microbiology 09/07/16 Blood Culture - Preliminary, Resulted No Growth after 48 hours. All Specime... 09/07/16 Blood Culture - Preliminary, Resulted No Growth after 48 hours. All Specime... 09/07/16 Urine Culture - Final, Complete Discharge Medications Scheduled (Navya Anthony) 300 Unit/Ml Inj, 23 UNIT SC DAILY, (Reported) Atenolol (Atenolol) 100 Mg Tab, 100 MG PO DAILY, (Reported) Benazepril Hcl (Lotensin) 20 Mg Tab, 20 MG PO DAILY Cyanocobalamin (Vitamin B-12) 1,000 Mcg Tab, 1,000 MCG PO DAILY, (Reported) Furosemide (Furosemide) 40 Mg Tab, 40 MG PO BID Glipizide (Glipizide) 10 Mg Tab, 20 MG PO DAILY, (Reported) Hyoscyamine Sulfate (Hyoscyamine Sulfate Odt) 0.125 Mg Tab, 0.125 MG PO Q4HP for TERMINAL SECRETIONS Lactulose (Lactulose) 10 Gm/15 Ml Samantha, 30 ML PO DAILY, (Reported) Mirtazapine (Mirtazapine) 45 Mg Tab, 45 MG PO QHS, (Reported) Morphine Sulfate (Morphine Sulfate Concentrate) 10 Mg/0.5 Ml Conc, 0.25-1 ML PO Q2HP for PAIN OR SHORTNESS OF BREATH Pantoprazole Sodium (Pantoprazole Sodium) 40 Mg Tab, 40 MG PO DAILY, (Reported) Potassium Chloride (Potassium Chloride ER) 20 Meq Tab, 20 MEQ PO DAILY, ( Reported) Rifaximin (Xifaxan) 550 Mg Tab, 550 MG PO BID, (Reported) Sitagliptin Phosphate (Januvia) 100 Mg Tab, 100 MG PO DAILY, (Reported) Spironolactone (Spironolactone) 25 Mg Tab, 25 MG PO DAILY, (Reported) Scheduled PRN (Flonase Allergy Relief) 50 Mcg/Act Spr, 50 MCG NA DAILY PRN for CONGESTION, ( Reported) Clonazepam (Clonazepam) 1 Mg Tab, 1 MG PO BID PRN for ANXIETY, (Reported) Lorazepam (Ativan) 0.5 Mg Tab, 0.5 MG PO Q4HP PRN for ANXIETY/AGITATION Allergies Coded Allergies: Shrimp (Unverified Allergy, Unknown, "SWELLING", 08/18/15) RENATA MONTOYA Sep 09, 2016 10:42
== END 2016-09-09 11:38 | disposition hospice, home (50) | DRG 433 ==
LOC: M ED 08:23 → M ED INP 11:28 → M MSPAV 13:03
PROVIDERS: ADMIT Internal Medicine Nephrology; ATTEND Hospitalist
DX: K74.60 Unspecified cirrhosis of liver (principal); K76.6 Portal hypertension; D61.818 Other pancytopenia; I13.0 Hypertensive heart and chronic kidney disease with heart failure and stage 1 through stage 4 chronic kidney disease, or unspecified chronic kidney disease; N18.3 Chronic kidney disease, stage 3 (moderate); I50.9 Heart failure, unspecified; E11.9 Type 2 diabetes mellitus without complications; I25.10 Atherosclerotic heart disease of native coronary artery without angina pectoris; K21.9 Gastro-esophageal reflux disease without esophagitis; Z85.46 Personal history of malignant neoplasm of prostate; F41.9 Anxiety disorder, unspecified; F32.9 Major depressive disorder, single episode, unspecified; Z79.899 Other long term (current) drug therapy; Z91.013 Allergy to seafood; K58.9 Irritable bowel syndrome, unspecified; E53.8 Deficiency of other specified B group vitamins; D73.1 Hypersplenism; F40.00 Agoraphobia, unspecified; Z79.4 Long term (current) use of insulin; R26.89 Other abnormalities of gait and mobility